=== PATIENT | male | born 1985 | race Caucasian/White ===

== ENCOUNTER 2016-04-09 01:32 | Emergency (ER) | payer OTHER ==
[2016-04-09] MEDS ORDERED: Aspirin Low Dose CHEW TAB* 81 MG PO ONE (01:46)
[2016-04-09 02:04] LABS: Hematocrit 45 % (42-52); Hemoglobin 14.9 g/dl (14.0-18.0); Mean Corpuscular HGB Conc 33 g/dl (31-36); Mean Corpuscular Hemoglobin 27 pg (27-31); Mean Corpuscular Volume 82 fL (80-94); Mean Platelet Volume 9 um3 (7.4-10.4); Red Blood Count 5.44 10^6/ul (4.0-5.4); Red Cell Distribution Width 13 % (10.5-15); White Blood Count 6.1 10^3/ul (3.5-10.8)
[2016-04-09 02:26] LABS: ALT 27 U/L (7-52); AST 27 U/L (13-39); Albumin 4.9 g/dL (3.2-5.2); Alkaline Phosphatase 47 U/L (34-104); Anion Gap 8 mmol/L (2-11); BUN/Creatinine Ratio 16.9 (8-20); Blood Urea Nitrogen 13 mg/dL (6-24); CO2 Carbon Dioxide 26 mmol/L (22-32); Chloride 105 mmol/L (101-111); EGFR African American 153.6 (>60); EGFR Non-African American 119.4 (>60); Globulin 2.3 g/dL (2-4); Glucose 94 mg/dL (70-100); Potassium 3.7 mmol/L (3.5-5.0); Sodium 139 mmol/L (133-145); Total Protein 7.2 g/dL (6.4-8.9)
[2016-04-09] MEDS ORDERED: Ketorolac INJ* 30 MG/ML 1 ML VIAL IV ONE (03:20)
[2016-04-09] MEDS ORDERED: NS 0.9% 1000 ML* 1,000 ML IV ONE (03:20)
[2016-04-09 04:13] LABS: C Reactive Protein < 1.00 mg/L (< 5.00); Magnesium 2.2 mg/dL (1.9-2.7)
[2016-04-09] MEDS: Iohexol 350* (CONTRAST) 500 ML MDV IV ONE ×2 (04:56→05:19)
[2016-04-09 05:53] VITALS: BP 107/57
--- NOTE | 2016-04-09 06:04 | ED ---
Mirza Bass Adam, scribed for Daren Marks MD on 04/09/16 at 0231 . HPI Chest Pain - HPI Summary HPI Summary: Pt is a 30 year old male presenting with mid-sternal CP that set on 4-5 days ago. He states that at first he was feeling palpitations (being aware of his heartbeat) but this progressed into intermittent CP. He describes the pain as a pressure/tightness in his chest and states that it is worse when he bends over and lies down. It is not worse with contact. Drinking Gatorade seemed to alleviate the CP yesterday. Today at work the pt states that his heart seemed to be beating very heavily as if he had been exercising, but he was at rest. He also c/o feeling hot while lying in bed tonight. He denies any recent illness. Hx of tobacco use. - History of Current Complaint Chief Complaint: EDChestPainROMI Hx Obtained From: Patient Onset/Duration: Started Days Ago, Atraumatic, Still Present Timing: Intermittent Initial Severity: Moderate Current Severity: Moderate Chest Pain Location: Mid Sternal Chest Pain Radiates: No Character: Pressure/Squeezing, Tightness Aggravating Factor(s): Position - Bending over, Recumbent Position Alleviating Factor(s): Other: - Drinking Gatorade seemed to alleviate the CP yesterday Associated Signs and Symptoms: Positive: Palpitations - Allergy/Home Medications Allergies/Adverse Reactions: Allergies Allergy/AdvReac Type Severity Reaction Status Date / Time No Known Allergies Allergy Verified 04/09/16 02:38 Home Medications: Home Medications NK [No Home Medications Reported] 04/09/16 [History Confirmed 04/09/16] PMH/Surg Hx/FS Hx/Imm Hx Infectious Disease History: No Infectious Disease History: Denies: Traveled Outside the [place] in Last 30 Days - Family History Known Family History: Positive: Cardiac Disease - Enlarged heart (mother) - Social History Occupation: Employed Full-time Lives: Alone Hx Tobacco Use: Yes Smoking Status (MU): Current Some Day Smoker Review of Systems Constitutional: Negative Negative: Fever Positive: Palpitations, Chest Pain Negative: Edema All Other Systems Reviewed And Are Negative: Yes Physical Exam Triage Information Reviewed: Yes Vital Signs On Initial Exam: Initial Vitals Temp Pulse Resp BP Pulse Ox 98.3 F 70 17 118/76 100 04/09/16 01:39 04/09/16 01:39 04/09/16 01:39 04/09/16 01:39 04/09/16 01:39 Vital Signs Reviewed: Yes Appearance: Positive: Well-Appearing, No Pain Distress Skin: Positive: Warm, Skin Color Reflects Adequate Perfusion, Dry Head/Face: Positive: Normal Head/Face Inspection Eyes: Positive: EOMI, DERECK ENT: Positive: Normal ENT inspection Neck: Positive: Supple, Nontender Respiratory/Lung Sounds: Positive: Clear to Auscultation, Breath Sounds Present Cardiovascular: Positive: RRR Abdomen Description: Positive: Nontender, Soft Bowel Sounds: Positive: Present Musculoskeletal: Positive: Normal, Strength/ROM Intact Neurological: Positive: Normal, Sensory/Motor Intact, Alert, Oriented to Person Place, Time Psychiatric: Positive: Affect/Mood Appropriate Diagnostics - Vital Signs Vital Signs Temp Pulse Resp BP Pulse Ox 04/09/16 01:39 98.3 F 70 17 118/76 100 - Laboratory Lab Results: Lab Results 04/09/16 Range/Units 01:45 WBC 6.1 (3.5-10.8) 10^3/ul RBC 5.44 H (4.0-5.4) 10^6/ul Hgb 14.9 (14.0-18.0) g/dl Hct 45 (42-52) % MCV 82 (80-94) fL MCH 27 (27-31) pg MCHC 33 (31-36) g/dl RDW 13 (10.5-15) % Plt Count 199 (150-450) 10^3/ul MPV 9 (7.4-10.4) um3 Neut % (Auto) 46.1 (38-83) % Lymph % (Auto) 38.8 (25-47) % [place] % (Auto) 11.3 H (1-9) % Eos % (Auto) 3.1 (0-6) % Baso % (Auto) 0.7 (0-2) % Absolute Neuts (auto) 2.8 (1.5-7.7) 10^3/ul Absolute Lymphs (auto) 2.3 (1.0-4.8) 10^3/ul Absolute Monos (auto) 0.7 (0-0.8) 10^3/ul Absolute Eos (auto) 0.2 (0-0.6) 10^3/ul Absolute Basos (auto) 0 (0-0.2) 10^3/ul Absolute Nucleated RBC 0 10^3/ul Nucleated RBC % 0.1 Result Diagrams: 04/09/16 01:45 04/09/16 01:45 Lab Statement: Any lab studies that have been ordered have been reviewed, and results considered in the medical decision making process. - Radiology CXR Xray Interpretation: No Acute Changes Radiology Interpretation Completed By: ED Physician - CT CTA CHEST CT Interpretation Completed By: Radiologist - NO PULMONARY EMBOLISM. NO AORTIC DISSECTION OR ANEURYSM. NO PNEUMONIA OR PLEURAL EFFUSIONS. MEDIASTINAL AND BILATERAL HILAR LYMPHADENOPATHY, INDETERMINATE. - EKG 01:33 Cardiac Rate: NL - 69 BPM EKG Rhythm: Sinus Rhythm - Normal ST Segment: Normal Ectopy: None - Additional Comments Diagnostic Additional Comments: Troponin I - 0.00 Chest Pain Course/Dx - Course Assessment/Plan: CHEST PAIN IMPROVED AFTER TORADOL IN ED. DISCUSSED RESULTS WITH PATIENT. DISCUSSED S/SX OF GERD WITH PATIENT. AT THIS TIME, WILL TREAT WITH NSAIDS AND F/U PMD, RETURN IF WORSE. DISCHARGE HOME STABLE. - Diagnoses Provider Diagnoses: Chest pain Discharge - Discharge Plan Condition: Stable Disposition: HOME Patient Education Materials: Chest Pain (ED) Referrals: [facility] REFERRAL [Outside] Additional Instructions: FOLLOW UP WITH YOUR DOCTOR. TAKE IBUPROFEN 600MG EVERY 6 HOUR NEEDED IF HELPFUL. RETURN TO THE EMERGENCY DEPARTMENT FOR ANY WORSENING OF YOUR CONDITION; PAIN, SHORTNESS OF BREATH, YOU FEEL ILL OR QUESTIONS OR CONCERNS. The documentation as recorded by the Mirza hinkle Adam accurately reflects the service I personally performed and the decisions made by me, Daren Marks MD.
--- NOTE | 2016-04-09 08:21 | RAD ---
INDICATION: Chest pain. COMPARISON: There are no prior studies available for comparison. TECHNIQUE: Dual-energy PA and lateral views of the chest were obtained. FINDINGS: The heart is within normal limits in size. Mediastinal and hilar contours appear within normal limits. The lungs are clear. No pleural effusion is present. IMPRESSION: NO EVIDENCE FOR ACTIVE CARDIOPULMONARY DISEASE.
--- NOTE | 2016-04-09 08:49 | RAD ---
INDICATION: Chest pain and shortness of breath COMPARISON: None TECHNIQUE: Axial source images were acquired following the administration of 63 mL Omnipaque [address] angiographic technique. Coronal and sagittal reconstructed images were constructed and reviewed. FINDINGS: There there are no filling defects in the pulmonary arteries to indicate acute pulmonary embolic disease. There are no focal infiltrates or effusions. There are no pulmonary parenchymal masses. The heart is normal in size. There is no evidence of pericardial effusion. There is no evidence of aortic aneurysm or dissection. There are bilateral hilar lymph nodes measuring up to 1.4 cm in short axis diameter slightly worse overlying the left hilum relative to the right. The subcarinal lymph node measures 1.4 x 3 cm in the axial plane there is a right of midline pretracheal lymph node measuring 1 cm in short access. There is no axillary lymphadenopathy. The visualized osseous structures appear normal. Limited views of the upper abdomen show no abnormalities. IMPRESSION: 1. No CT of evidence of pulmonary embolism. 2. Hilar and mediastinal lymphadenopathy. This nonspecific finding could be seen due to infectious, inflammatory or other etiologies. Correlate to clinical concern for sarcoidosis.
== END 2016-04-09 06:31 | disposition home or self-care (01) ==
LOC: ED 01:32
DX: R07.9 Chest pain, unspecified (principal); R59.1 Generalized enlarged lymph nodes; R00.2 Palpitations; F17.210 Nicotine dependence, cigarettes, uncomplicated
CPT/HCPCS: 36415; 71020; 71275; 80053; 83605; 83735; 84484; 85025; 86140; 93005; 96374; 99283; A9270-GY; J1885; Q9967

== ENCOUNTER 2017-09-27 17:37 | Emergency (ER) | payer OTHER ==
--- OUTSIDE RECORDS SUMMARY | 2017-09-27 17:43 | XMS REPORT ---
:1985 External Reference #:[id number] Author Organization [email or web address] Address [address] [place] [address] [place] [address] Phone [phone] Care Team Providers Name Role Phone Jamil Antonio M.D. Care Team Information Journal Entry Audit Clerk Unavailable Payers Type Date Identification Numbers Payment Provider Subscriber Commercial Policy Number: [id number] [employer] Boom Gunderson PayID: [id number] [address] [place] [id number] Problems Description No Information Social History Type Date Description Comments Marital Status Single Occupation Musician ETOH Use Rarely consumes alcohol Smoking Light tobacco smoker (10 or fewer cigarettes/day) Daily Caffeine Consumes on average 1 cup of regular coffee per day Exercise Type/Frequency Exercises sporadically Allergies, Adverse Reactions, Alerts Date Description Reaction Status Severity Comments 09/10/2017 NKDA active Medications Medication Date Status Form Strength Qnty SIG Indications Ordering Provider No Active Active Unknown Medications 018 No Active Hx Jamil Mendez - [place] 018 Preparation H 00/0 Hx Cream 1-0.25-14.4 insert Unknown 000 -15% rectally every 8 hours as needed Vital Signs Date Vital Result Comment 09/15/2017 Height 71 inches 5'11" Weight 162.00 lb Heart Rate 68 /min BP Systolic 130 mmHg BP Diastolic 68 mmHg Respiratory Rate 16 /min Body Temperature 98.0 F BMI (Body Mass Index) 22.6 kg/m2 Results Description No Information Procedures Description No Information Plan of Care 09/15/2017 - Jamil Antonio M.D.K64.5 Perianal venous thrombosisFollow up:As needed
--- OUTSIDE RECORDS SUMMARY | 2017-09-27 17:43 | XMS REPORT ---
:1985 External Reference #:[id number] Author Organization [facility] Address [address] [place] [address] Phone [phone] Care Team Providers Name Role Phone Katerine Copeland Care Team Information Building Custodial Supervisor Unavailable Payers Type Date Identification Numbers Payment Provider Subscriber Health Maintenance Policy Number: [id number] [employer] Bo[employer] Gunderson Organization (HMO) ([facility]) PayID: [id number] [address] [address] [place] [address] Problems Description No Information Family History Date Family Member(s) Problem(s) Comments Siblings 1 1 brother Maternal Aunts Alcoholism Social History Type Date Description Comments Education Highest Level Completed Trade School Marital Status Single Diet Healthy, Well Balanced Sleep Typically sleeps 7 hours a night Smoke-Free Home is not smoke-free Occupation Musician Plays piano and violin Occupation [employer] Work Status Currently Working Hand Dominance Right-handed Cigarette Use currently smokes 1/2 Pack Daily Cigars Current Cigar Smoker occ Pipe Current Pipe Smoker, Smokes An Occasional Pipe ETOH Use Rarely consumes alcohol Recreational Drug Use Former Drug User Smoking Patient is a current smoker, smokes every day Enjoy Exercising Enjoys exercising sporadically Sun Exposure Uses sunscreen Seat Belt/Car Seat always uses seat belt Bike Helmet Always Guns in Home No Smoke Alarms Yes smoke alarm Currently Active Patient is currently sexually active Condom Use Uses Condoms Age [address] [place] 18 Years Old Additional Info Sexual preference is women Allergies, Adverse Reactions, Alerts Date Description Reaction Status Severity Comments 01/06/2017 NKDA active Medications Medication Date Status Form Strength Qnty SIG Indications Ordering Provider Preparation H 09/08/ Active Cream 1% 26gm apply K64.9 Silcoff, Hydrocortisone 2018 bid-qid as jian Goodwin M.D. No Active Hx Unknown Medications 2017 - 2017 Amoxicillin 04/23/ Hx Tablets 875mg 20tab 1 by mouth J01.90 Beth, 2018 - s twice a Buddy, 09/07/ day x 10 M.D. 2018 days for sinus infection Fluticasone 04/23/ Hx Suspension 50mcg/Act 16uni two sprays J01.90 Silcoff, Propionate 2018 - ts (50 Buddy, 09/07/ mcg/spray) M.D. 2018 per nostril once daily (can also try one spray per nostril bid) for allergies No Active Unknown Medications 2016 - 2017 Immunizations CPT Code Status Date Vaccine Lot # [id number] Given 01/06/2017 Influenza Virus Vaccine, Quadrivalent, Split, [id number] Preservative Free Vital Signs Date Vital Result Comment 09/08/2017 BP Systolic 112 mmHg BP Diastolic 70 mmHg Height 71 inches 5'11" Weight 167.00 lb with shoes BMI (Body Mass Index) 23.3 kg/m2 04/23/2017 BP Systolic 125 mmHg BP Diastolic 78 mmHg Body Temperature 98.2 F Weight 173.00 lb with shoes 01/06/2017 BP Systolic 118 mmHg BP Diastolic 70 mmHg Height 71 inches 5'11" Weight 166.00 lb BMI (Body Mass Index) 23.1 kg/m2 Results Test Date Test Result H/L Range Note Lipid Profile (Trig/Chol/HDL) 01/06/2017 Triglycerides 103 mg/dL 1 Cholesterol 164 mg/dL 2 HDL Cholesterol 40.7 mg/dL 3 LDL Cholesterol 103 mg/dL 4 1 Desirable: <150 Borderline High: 150-199 High: 200-499 Very High: >500 2 Desirable: <200 Borderline High: 200-239 High: >239 3 Low: <40 Desirable: 40-60 High: >60 4 Desirable: <100 Near Optimal: 100-129 Borderline High: 130-159 High: 160-189 Very High: >189 Procedures Description No Information Encounters Type Date Location Provider CPT E/M Dx Office Visit 09/08/2017 4:20p Main Office Shamika Pizarro, [place]icky [address] K64.9 R19.5 Office Visit 04/23/2017 2:00p Main Office Shamika Pizarro [place] 74957 J01.90 Office Visit 01/06/2017 9:40a Main Office Katerine Copeland [address]95 Z00.01 Z13.220 Z23 Z41.8 R00.2 F43.23 Plan of Care 09/08/2017 - Katerine CopelandK64.9 Unspecified hemorrhoidsNew Medication: Preparation H Hydrocortisone 1 %Referral:[facility], Surgery, [id number] Other fecal abnormalitiesFollow up:Monitor and if see the whitish stool again, I will send lab order in to [facility] for you to collect stool sample
[2017-09-27 17:46] VITALS: BP 103/73
--- NOTE | 2017-09-27 18:15 | UC ---
Ear Complaint HPI - HPI Summary HPI Summary: 31 yo male presents with ears feeling clogged for the last 4 days. He tells me that he has a history of cerumen impaction and over the last 4 days has felt the same and tried to get it out at home with hydrogen peroxide and water but was unsuccessful. Denies fever, chills, or pain. - History of Current Complaint Chief Complaint: UCEar Stated Complaint: EAR CLOGGED Time Seen by Provider: 09/27/17 18:15 Hx Obtained From: Patient Onset/Duration: Gradual Onset Severity Currently: None Pain Intensity: 0 - Allergies/Home Medications Allergies/Adverse Reactions: Allergies Allergy/AdvReac Type Severity Reaction Status Date / Time No Known Allergies Allergy Verified 09/27/17 17:47 PMH/Surg Hx/FS Hx/Imm Hx - Additional Past Medical History Additional PMH: None Previously Healthy: Yes - Surgical History Surgical History: None - Family History Known Family History: Positive: Cardiac Disease - Enlarged heart (mother) - Social History Occupation: Employed Full-time Lives: With Family Alcohol Use: Occasionally Substance Use Type: None Smoking Status (MU): Former Smoker Household Exposure Type: Pipe Review of Systems Constitutional: Negative Skin: Negative Eyes: Negative ENT: Ear Ache Respiratory: Negative Cardiovascular: Negative Gastrointestinal: Negative Neurological: Negative Psychological: Negative All Other Systems Reviewed And Are Negative: Yes Physical Exam - Summary Physical Exam Summary: GENERAL: NAD. WDWN. No pain distress. SKIN: No rashes, sores, lesions, or open wounds. HEENT: Head: AT/NC Eyes: Conjunctiva clear without inflammation or discharge. Ears: Hearing grossly normal. B/L TM occluded by cerumen L>R....s/p flush: TMs intact, no bulging, erythema, or edema. NECK: Supple. Nontender. No lymphadenopathy. CHEST: No accessory muscle use. Breathing comfortably and in no distress. CV: Pulses intact. Brisk cap refill. NEURO: Alert. PSYCH: Age appropriate behavior. Triage Information Reviewed: Yes Vital Signs: Initial Vital Signs Temp 99.2 F 09/27/17 17:44 Pulse 75 09/27/17 17:44 Resp 18 09/27/17 17:44 BP 103/73 09/27/17 17:44 Pulse Ox 98 09/27/17 17:44 Ear Complaint Course/Dx - Course Course Of Treatment: Cerumen impaction. Good relief s/p disimpaction/ear flush. TMs WNL. - Differential Dx/Diagnosis Provider Diagnoses: Cerumen impaction Discharge - Sign-Out/Discharge Documenting (check all that apply): Discharge/Admit/Transfer - Discharge Plan Condition: Stable Disposition: HOME Patient Education Materials: Cerumen Impaction (ED) Referrals: Shamika Pizarro PA [Primary Care Provider] - Additional Instructions: If you develop a fever, shortness of breath, chest pain, new or worsening symptoms - please call your PCP or go to the ED. - Billing Disposition and Condition Condition: STABLE Disposition: Home
== END 2017-09-27 19:13 | disposition home or self-care (01) ==
LOC: UCEAST 17:37
DX: H61.23 Impacted cerumen, bilateral (principal); Z82.49 Family history of ischemic heart disease and other diseases of the circulatory system; Z87.891 Personal history of nicotine dependence
CPT/HCPCS: 99213; G0463